=== PATIENT | male | born 1965 | race Caucasian/White ===

== ENCOUNTER 2016-11-15 12:03 | Inpatient (IN) | payer MEDICAID, OTHER ==
[2016-11-15] VITALS (292 sets, daily range): BP systolic 106–153; BP diastolic 72–96; PULSE 93–127; TEMP 97–97.7; O2SAT 89–100
[~2016-11-15] VITALS: Ht 180.3 cm; Wt 130.0 kg
[~2016-11-15 12:03] MED LIST: ALDACTONE50 MG PO; ALEVE 220MG220 MG PO; ASPIRIN 81M81 MG/TA2 PO; ASPIRIN E.C. 8181 MG PO; BACTRIM DS 8001 TAB PO; BENADRYL25 M2 PO; CIPRO 500MG TA500 MG PO; DESYREL 50MG50 MG PO; FLAGYL500 MG PO; FLEXERIL10 MG PO; GLUCOPHAGE500 MG/TAB PO; IRON325 MG PO; LASIX 20MG TABL20 MG PO; LASIX 40MG TABL40 MG PO; LOPRESSOR 225 MG/TAB PO; MEDROL 4MG DOSPA4 MG PO; MULTI VITAMINS1 TAB PO; NO HOME MEDICATIONS; NORCO 325 MG-51 TAB PO; PLAVIX 75MG TAB75 MG PO; PREDNISONE20 MG PO; PRILOSEC10 MG PO; PRINZIDE 12.5 M1 TAB PO; THIAMINE 1100 MG/TAB PO; ULTRAM ER100 MG PO; VALIUM 5MG T5 MG/TAB PO; ZESTRIL 10MG10 MG PO; ZESTRIL 5MG5 MG PO; ZITHROMAX Z PA250 MG PO; ZOCOR 40MG40 MG PO; ZOFRAN 4MG T4 MG/TAB PO
[2016-11-15 12:30] LABS: INR 1.4 (0.8-3.0); PROTHROMBIN TIME 16.2 SECONDS (9.7-12.8)
[2016-11-15 12:33] LABS: PARTIAL THROMBOPLASTIN TIME 31.8 SECONDS (26.0-37.0)
[2016-11-15 12:34] LABS: BASO % 0.2 % (0.0-2.0); EOS % 0.1 % (0-4.0); GRAN # 5.6 (1.4-6.5); GRAN % 69.9 % (42.2-75.2); LYMPH # 1.8 (1.2-3.4); LYMPH % 22.3 % (20.0-51.0); MEAN CELL VOLUME 77 fl (80.0-100.0); MEAN CORPUSCULAR HGB CONC 34 g/dl (33.0-37.0); MONO # 0.6 (0.1-0.6); MONO % 7.1 % (1.7-9.3); PLATELET COUNT 121 K/mm3 (130-400); RED BLOOD COUNT 4.46 M/mm3 (4.20-5.60); REDCELL DISTRIBUTION WIDTH-CV 20.7 % (11.5-14.5)
[2016-11-15 12:35] LABS: ADJUSTED CALCIUM 10.9 mg/dL (8.4-10.2); ALBUMIN 3.1 gm/dL (3.5-5.0); BILIRUBIN,TOTAL 8.7 mg/dL (0.0-1.0); CALCIUM 10.2 mg/dL (8.4-10.2); CREATININE, serum 0.79 mg/dL (0.66-1.25); HEMATOCRIT 34.4 % (42.0-52.0); HEMOGLOBIN 11.7 g/dl (13.5-18.0); MAGNESIUM 1.3 mg/dL (1.6-2.3); MEAN CORPUSCULAR HEMOGLOBIN 26 pg (27.0-31.0); TOTAL PROTEIN 7.6 gm/dL (6.4-8.2)
[2016-11-15 12:37] LABS: POTASSIUM 4.4 mmol/L (3.4-5.0)
[2016-11-15 12:54] LABS: TROPONIN-I 0.086 ng/mL (0.000-0.034)
[2016-11-15] MEDS ORDERED: VALIUM 5MG T5 MG/TAB PO (15:49)
[2016-11-15] MEDS ORDERED: LASIX 40MG TABL40 MG PO (15:50)
[2016-11-15] MEDS ORDERED: ALDACTONE 25MG25 M1 PO (15:52)
[2016-11-15 17:19] LABS: PH 6 (5-8); SQUAMOUS EPITHELIAL 0-2 /hpf; URINE APPEARANCE Clear; URINE BACTERIA None Seen /hpf; URINE BILIRUBIN Positive (NEGATIVE); URINE BLOOD Negative (NEGATIVE); URINE COLOR Amber; URINE GLUCOSE Negative (NEGATIVE); URINE KETONE Trace (NEGATIVE); URINE RBC 0-2 /hpf; URINE WBC 0-2 /hpf
[2016-11-15 17:40] LABS: TOTAL IRON BINDING CAPACITY 359 ug/dL (261-462)
[2016-11-15 18:09] LABS: FERRITIN 139 ng/mL (18-464)
[2016-11-16] VITALS (639 sets, daily range): BP systolic 103–138; BP diastolic 54–83; PULSE 77–97; TEMP 97.4–98.7; O2SAT 83–100
[2016-11-16 06:07] LABS: INR 1.3 (0.8-3.0); PROTHROMBIN TIME 14.6 SECONDS (9.7-12.8)
[2016-11-16 06:09] LABS: BASO % 0.3 % (0.0-2.0); EOS # 0.1 (0.0-0.7); EOS % 0.5 % (0-4.0); GRAN # 6.5 (1.4-6.5); GRAN % 66.8 % (42.2-75.2); LYMPH # 2.4 (1.2-3.4); MEAN CELL VOLUME 77 fl (80.0-100.0); MEAN CORPUSCULAR HGB CONC 34 g/dl (33.0-37.0); MEAN PLATELET VOLUME 12.2 fl (7.4-10.4); MONO # 0.7 (0.1-0.6); MONO % 7.1 % (1.7-9.3); PLATELET COUNT 103 K/mm3 (130-400); RED BLOOD COUNT 3.45 M/mm3 (4.20-5.60); REDCELL DISTRIBUTION WIDTH-CV 20.9 % (11.5-14.5); WHITE BLOOD COUNT 9.7 K/mm3 (4.8-10.8)
[2016-11-16 06:17] LABS: HEMATOCRIT 26.6 % (42.0-52.0); HEMOGLOBIN 9.1 g/dl (13.5-18.0); MEAN CORPUSCULAR HEMOGLOBIN 26 pg (27.0-31.0)
[2016-11-16 06:24] LABS: ADJUSTED CALCIUM 9.3 mg/dL (8.4-10.2); ALBUMIN 2.5 gm/dL (3.5-5.0); BILIRUBIN,TOTAL 9.6 mg/dL (0.0-1.0); CALCIUM 8.1 mg/dL (8.4-10.2); CREATININE, serum 0.81 mg/dL (0.66-1.25); PHOSPHOROUS 2.9 mg/dL (2.5-4.5); POTASSIUM 4.1 mmol/L (3.4-5.0); TOTAL PROTEIN 6.4 gm/dL (6.4-8.2)
[2016-11-17] VITALS (12 sets, daily range): BP systolic 102–140; BP diastolic 58–81; PULSE 76–92; TEMP 97–98.7
[2016-11-17 09:05] LABS: BASO % 0.4 % (0.0-2.0); EOS # 0.2 (0.0-0.7); EOS % 1.9 % (0-4.0); GRAN # 5.5 (1.4-6.5); GRAN % 69.1 % (42.2-75.2); LYMPH # 1.6 (1.2-3.4); MEAN CELL VOLUME 80 fl (80.0-100.0); MEAN CORPUSCULAR HGB CONC 34 g/dl (33.0-37.0); MONO # 0.6 (0.1-0.6); MONO % 7.6 % (1.7-9.3); RED BLOOD COUNT 2.89 M/mm3 (4.20-5.60); REDCELL DISTRIBUTION WIDTH-CV 21.2 % (11.5-14.5); WHITE BLOOD COUNT 7.9 K/mm3 (4.8-10.8)
[2016-11-17 09:09] LABS: HEMATOCRIT 23.1 % (42.0-52.0); HEMOGLOBIN 7.8 g/dl (13.5-18.0); MEAN CORPUSCULAR HEMOGLOBIN 27 pg (27.0-31.0); PLATELET COUNT 69 K/mm3 (130-400)
[2016-11-17 09:21] LABS: ADJUSTED CALCIUM 9.2 mg/dL (8.4-10.2); ALBUMIN 2.5 gm/dL (3.5-5.0); BILIRUBIN,TOTAL 12.3 mg/dL (0.0-1.0); CREATININE, serum 0.87 mg/dL (0.66-1.25); POTASSIUM 3.8 mmol/L (3.4-5.0); TOTAL PROTEIN 6.3 gm/dL (6.4-8.2)
[2016-11-18 00:31] VITALS: BP 132/75; PULSE 82; TEMP 98.3
[2016-11-18 02:27] VITALS: BP 139/79; PULSE 87; TEMP 98.8
[2016-11-18 04:08] VITALS: BP 136/72; PULSE 79; TEMP 98.3
[2016-11-18 06:12] VITALS: BP 127/73; PULSE 77; TEMP 98.2
[2016-11-18 07:45] VITALS: BP 128/66; PULSE 73; TEMP 98.4
[2016-11-18 07:52] LABS: MEAN CELL VOLUME 81 fl (80.0-100.0); MEAN CORPUSCULAR HGB CONC 34 g/dl (33.0-37.0); MEAN PLATELET VOLUME 12.1 fl (7.4-10.4); RED BLOOD COUNT 2.77 M/mm3 (4.20-5.60); REDCELL DISTRIBUTION WIDTH-CV 21.4 % (11.5-14.5); WHITE BLOOD COUNT 7.4 K/mm3 (4.8-10.8)
[2016-11-18 08:09] LABS: ADJUSTED CALCIUM 9.1 mg/dL (8.4-10.2); ALBUMIN 2.5 gm/dL (3.5-5.0); BILIRUBIN,TOTAL 10.6 mg/dL (0.0-1.0); CALCIUM 7.9 mg/dL (8.4-10.2); CREATININE, serum 0.84 mg/dL (0.66-1.25); POTASSIUM 3.6 mmol/L (3.4-5.0); TOTAL PROTEIN 6.4 gm/dL (6.4-8.2)
[2016-11-18 08:13] LABS: HEMATOCRIT 22.4 % (42.0-52.0); HEMOGLOBIN 7.6 g/dl (13.5-18.0); MEAN CORPUSCULAR HEMOGLOBIN 27 pg (27.0-31.0); PLATELET COUNT 69 K/mm3 (130-400)
[2016-11-18] MEDS ORDERED: CARAFATE 1GM1 G PO (08:53)
[2016-11-18] MEDS ORDERED: PRILOSEC 20MG20 MG PO (08:53)
[2016-11-18 09:12] VITALS: BP 117/56; PULSE 73; TEMP 98.6
[2016-11-18] MEDS ORDERED: ZESTRIL 10MG10 MG PO (09:47)
[2016-11-18 09:53] LABS: BAND 3 % (0-10); BASOPHIL 1 % (0-2); EOSINOPHIL 1 % (0-4); NEUTROPHILS 67 % (42.0-75.2); TOTAL CELLS COUNTED 100
[2016-11-18 09:56] LABS: ANISOCYTOSIS 1+; HYPOCHROMIA 1+; TARGET CELLS 2+
[2016-11-18 09:58] LABS: ADD PATHOLOGY DIFF REVIEW YES
[2016-11-18] MEDS ORDERED: TENORMIN 2525 MG/TAB PO (11:26)
[2016-11-19 08:45] LABS: PATHOLOGY DIFF REVIEW OK
[2016-11-21 19:19] LABS: ALPHA 1 ANTITRYPSIN TOTAL 153 mg/dL (())
== END 2016-11-18 10:55 | disposition home or self-care (01) | DRG 378 ==
LOC: COL.ER 12:03 → SURG 14:16 → ICU 14:16 → SURG 11-16 12:20 → ICU 11-16 12:20 → SURG 11-18 10:55
PROVIDERS: Emergency Medicine; Internal Medicine; Internal Medicine Gastroenterology
PROC: 0DJ08ZZ Inspection of Upper Intestinal Tract, Via Natural or Artificial Opening Endoscopic (ICD-10-PCS; principal; 2016-11-15 17:00)
DX: K92.0 Hematemesis (principal); D62 Acute posthemorrhagic anemia; F10.239 Alcohol dependence with withdrawal, unspecified; E44.0 Moderate protein-calorie malnutrition; I10 Essential (primary) hypertension; E78.5 Hyperlipidemia, unspecified; E11.9 Type 2 diabetes mellitus without complications; F10.229 Alcohol dependence with intoxication, unspecified; Y90.3 Blood alcohol level of 60-79 mg/100 ml; K29.70 Gastritis, unspecified, without bleeding; K70.10 Alcoholic hepatitis without ascites; Z95.5 Presence of coronary angioplasty implant and graft; Z68.39 Body mass index [BMI] 39.0-39.9, adult
CPT/HCPCS: 99223-AI; 99232-AI; 99239; C9113; J2250; J2270; J2405; J2704; J3360; J3411; J3430; J3475; J7030; Q9967

== ENCOUNTER → 2016-11-24 | Outpatient (CLI) | payer MEDICAID ==
[~2016-11-24] MED LIST changes: +ALDACTONE 25MG25 M1 PO; +CARAFATE 1GM1 G PO; +K-DUR20 MEQ PO; +PRILOSEC 20MG20 MG PO; +PRINIVIL5 MG PO; +TENORMIN 2525 MG/TAB PO; +ULTRAM 50MG TAB50 MG PO
[2016-11-24 15:48] LABS: BASO # 0.1 (0.0-0.2); BASO % 0.8 % (0.0-2.0); EOS # 0.1 (0.0-0.7); EOS % 1.7 % (0-4.0); GRAN # 5.2 (1.4-6.5); GRAN % 66.5 % (42.2-75.2); LYMPH # 1.3 (1.2-3.4); MEAN CELL VOLUME 89 fl (80.0-100.0); MEAN CORPUSCULAR HGB CONC 31 g/dl (33.0-37.0); MEAN PLATELET VOLUME 11.8 fl (7.4-10.4); MONO % 12.3 % (1.7-9.3); PLATELET COUNT 222 K/mm3 (130-400); RED BLOOD COUNT 2.92 M/mm3 (4.20-5.60); REDCELL DISTRIBUTION WIDTH-CV 22.2 % (11.5-14.5); WHITE BLOOD COUNT 7.8 K/mm3 (4.8-10.8)
[2016-11-24 15:49] LABS: HEMATOCRIT 25.9 % (42.0-52.0); HEMOGLOBIN 8.1 g/dl (13.5-18.0); MEAN CORPUSCULAR HEMOGLOBIN 28 pg (27.0-31.0)
[2016-11-24 15:59] LABS: ADJUSTED CALCIUM 8.8 mg/dL (8.4-10.2); ALBUMIN 3.4 gm/dL (3.5-5.0); BILIRUBIN,TOTAL 3.4 mg/dL (0.0-1.0); CALCIUM 8.3 mg/dL (8.4-10.2); CREATININE, serum 0.88 mg/dL (0.66-1.25); POTASSIUM 3.7 mmol/L (3.4-5.0); TOTAL PROTEIN 7.6 gm/dL (6.4-8.2)
== END ==
LOC: ZCOL.LAB 15:25
PROVIDERS: Registered Nurse
DX: I10 Essential (primary) hypertension (principal); Z87.19 Personal history of other diseases of the digestive system

== ENCOUNTER → 2017-01-31 | Outpatient (CLI) | payer MEDICAID ==
[2017-01-31 14:35] LABS: BASO # 0.1 (0.0-0.2); BASO % 0.6 % (0.0-2.0); EOS # 0.2 (0.0-0.7); EOS % 1.7 % (0-4.0); GRAN # 7.3 (1.4-6.5); GRAN % 68.2 % (42.2-75.2); LYMPH # 2.1 (1.2-3.4); LYMPH % 19.6 % (20.0-51.0); MEAN CELL VOLUME 74 fl (80.0-100.0); MEAN CORPUSCULAR HGB CONC 29 g/dl (33.0-37.0); MEAN PLATELET VOLUME 10.2 fl (7.4-10.4); MONO % 9.5 % (1.7-9.3); PLATELET COUNT 212 K/mm3 (130-400); RED BLOOD COUNT 4.45 M/mm3 (4.20-5.60); REDCELL DISTRIBUTION WIDTH-CV 18.6 % (11.5-14.5); WHITE BLOOD COUNT 10.6 K/mm3 (4.8-10.8)
[2017-01-31 14:48] LABS: HEMATOCRIT 32.9 % (42.0-52.0); HEMOGLOBIN 9.5 g/dl (13.5-18.0); MEAN CORPUSCULAR HEMOGLOBIN 21 pg (27.0-31.0)
[2017-01-31 14:49] LABS: INR 1.2 (0.8-3.0); PROTHROMBIN TIME 13.8 SECONDS (9.7-12.8)
[2017-01-31 15:01] LABS: ADJUSTED CALCIUM 9.9 mg/dL (8.4-10.2); ALBUMIN 3.8 gm/dL (3.5-5.0); BILIRUBIN,TOTAL 0.9 mg/dL (0.0-1.0); CALCIUM 9.7 mg/dL (8.4-10.2); CREATININE, serum 0.81 mg/dL (0.66-1.25); POTASSIUM 4.1 mmol/L (3.4-5.0)
== END ==
LOC: COL.LAB 14:01
PROVIDERS: Internal Medicine Gastroenterology
DX: K76.0 Fatty (change of) liver, not elsewhere classified (principal)

== ENCOUNTER 2017-05-05 02:02 | Emergency (ER) | payer MEDICAID ==
[~2017-05-05] VITALS: Ht 180.3 cm; Wt 138.6 kg
[~2017-05-05 02:02] MED LIST changes: -K-DUR20 MEQ PO; -PRINIVIL5 MG PO; -ULTRAM 50MG TAB50 MG PO
[2017-05-05 02:06] VITALS: TEMP 98
[2017-05-05 02:39] LABS: BASO # 0.1 (0.0-0.2); BASO % 0.6 % (0.0-2.0); EOS # 0.1 (0.0-0.7); EOS % 0.8 % (0-4.0); GRAN # 6.8 (1.4-6.5); GRAN % 68.7 % (42.2-75.2); HEMOGLOBIN 12.5 g/dl (13.5-18.0); LYMPH # 2.3 (1.2-3.4); MEAN CELL VOLUME 74 fl (80.0-100.0); MEAN CORPUSCULAR HEMOGLOBIN 26 pg (27.0-31.0); MEAN CORPUSCULAR HGB CONC 34 g/dl (33.0-37.0); MEAN PLATELET VOLUME 10.7 fl (7.4-10.4); MONO # 0.6 (0.1-0.6); MONO % 6.5 % (1.7-9.3); PLATELET COUNT 149 K/mm3 (130-400); RED BLOOD COUNT 4.89 M/mm3 (4.20-5.60); WHITE BLOOD COUNT 9.9 K/mm3 (4.8-10.8)
[2017-05-05 02:40] LABS: HEMATOCRIT 36.3 % (42.0-52.0)
[2017-05-05 02:48] LABS: ANION GAP 13 mmol/L (7-16); BLOOD UREA NITROGEN 7 mg/dL (9-20); CALCIUM 7.7 mg/dL (8.4-10.2); CARBON DIOXIDE 22 mmol/L (22-30); CHLORIDE 94 mmol/L (98-107); GLUCOSE 120 mg/dL (74-106); POTASSIUM 3.9 mmol/L (3.4-5.0); SODIUM 129 mmol/L (137-145)
[2017-05-05] MEDS ORDERED: PRINIVIL5 MG PO (02:53)
[2017-05-05] MEDS ORDERED: K-DUR20 MEQ PO (02:55)
[2017-05-05 02:59] LABS: B-TYPE NATRIURETIC PEPTIDE 38 pg/mL (0-125); TROPONIN-I < 0.012 ng/mL (0.000-0.034)
[2017-05-05] MEDS ORDERED: ULTRAM 50MG TAB50 MG PO (03:21)
[2017-05-05 03:34] LABS: MAGNESIUM 1.3 mg/dL (1.6-2.3); PHOSPHOROUS 3.6 mg/dL (2.5-4.5)
[2017-05-05 05:01] VITALS: BP 110/75; PULSE 102
== END 2017-05-05 05:01 | disposition home or self-care (01) ==
LOC: COL.ER 02:02
PROVIDERS: Emergency Medicine
DX: M79.1 Myalgia (principal); R07.9 Chest pain, unspecified; I25.10 Atherosclerotic heart disease of native coronary artery without angina pectoris; Z95.5 Presence of coronary angioplasty implant and graft; Z87.891 Personal history of nicotine dependence; E11.9 Type 2 diabetes mellitus without complications; F10.10 Alcohol abuse, uncomplicated; Z79.84 Long term (current) use of oral hypoglycemic drugs
CPT/HCPCS: J1885; Q9967

== ENCOUNTER 2017-10-01 06:37 | Inpatient (IN) | payer MEDICAID ==
[~2017-10-01] VITALS: Ht 180.3 cm; Wt 123.6 kg
[~2017-10-01 06:37] MED LIST changes: +K-DUR20 MEQ PO; +PRINIVIL5 MG PO; +ULTRAM 50MG TAB50 MG PO
[2017-10-01] MEDS ORDERED: ALDACTONE50 MG PO (07:00)
[2017-10-01] MEDS ORDERED: MAG-OX 400400 MG/TAB PO (07:00)
[2017-10-01] MEDS ORDERED: LASIX 40MG TABL40 MG PO (07:00)
[2017-10-01] MEDS ORDERED: IRON 27 MG PO (07:21)
[2017-10-01 07:29] LABS: BASO # 0.1 (0.0-0.2); BASO % 0.8 % (0.0-2.0); EOS # 0.1 (0.0-0.7); EOS % 0.5 % (0-4.0); GRAN # 10.2 (1.4-6.5); GRAN % 77.4 % (42.2-75.2); LYMPH # 1.7 (1.2-3.4); LYMPH % 13.2 % (20.0-51.0); MEAN CELL VOLUME 83 fl (80.0-100.0); MEAN CORPUSCULAR HGB CONC 31 g/dl (33.0-37.0); MEAN PLATELET VOLUME 11.2 fl (7.4-10.4); MONO % 7.3 % (1.7-9.3); PLATELET COUNT 233 K/mm3 (130-400); REDCELL DISTRIBUTION WIDTH-CV 16.3 % (11.5-14.5)
[2017-10-01 07:33] LABS: INR 1.3 (0.8-3.0); PROTHROMBIN TIME 14.9 SECONDS (9.7-12.8)
[2017-10-01 07:39] LABS: ALBUMIN 3.9 gm/dL (3.5-5.0); BILIRUBIN,TOTAL 1.2 mg/dL (0.0-1.0); CREATININE, serum 0.51 mg/dL (0.66-1.25); POTASSIUM 4.7 mmol/L (3.4-5.0); TOTAL PROTEIN 7.8 gm/dL (6.4-8.2)
[2017-10-01 07:50] LABS: HEMATOCRIT 35.5 % (42.0-52.0); HEMOGLOBIN 10.9 g/dl (13.5-18.0); MEAN CORPUSCULAR HEMOGLOBIN 25 pg (27.0-31.0)
[2017-10-01 07:59] LABS: LIPASE 87 U/L (23-300)
[2017-10-01 08:14] LABS: TROPONIN-I < 0.012 ng/mL (0.000-0.034)
[2017-10-01] MEDS ORDERED: TYLENOL 325MG325 MG PO (11:23)
[2017-10-01 11:32] VITALS: BP 110/57; PULSE 78; TEMP 98.8
[2017-10-01 15:16] VITALS: BP 112/61; PULSE 89; TEMP 98.4
[2017-10-01 18:42] LABS: HEMATOCRIT 29.2 % (42.0-52.0); HEMOGLOBIN 9.2 g/dl (13.5-18.0)
[2017-10-01 19:37] VITALS: BP 111/44; PULSE 93; TEMP 99
[2017-10-02 00:30] VITALS: BP 95/52; PULSE 93; TEMP 98.5
[2017-10-02 02:00] LABS: HEMOGLOBIN 8.8 g/dl (13.5-18.0)
[2017-10-02 04:42] VITALS: BP 114/66; PULSE 84; TEMP 97.8
[2017-10-02 05:57] LABS: BASO # 0.1 (0.0-0.2); BASO % 0.7 % (0.0-2.0); EOS # 0.2 (0.0-0.7); EOS % 1.7 % (0-4.0); GRAN % 67.7 % (42.2-75.2); LYMPH # 2.2 (1.2-3.4); LYMPH % 21.5 % (20.0-51.0); MEAN CELL VOLUME 84 fl (80.0-100.0); MEAN CORPUSCULAR HGB CONC 30 g/dl (33.0-37.0); MEAN PLATELET VOLUME 10.9 fl (7.4-10.4); MONO # 0.8 (0.1-0.6); MONO % 7.5 % (1.7-9.3); PLATELET COUNT 180 K/mm3 (130-400); RED BLOOD COUNT 3.58 M/mm3 (4.20-5.60); REDCELL DISTRIBUTION WIDTH-CV 17.1 % (11.5-14.5)
[2017-10-02 06:02] LABS: HEMATOCRIT 30.2 % (42.0-52.0); HEMOGLOBIN 9.1 g/dl (13.5-18.0); MEAN CORPUSCULAR HEMOGLOBIN 25 pg (27.0-31.0)
[2017-10-02 06:07] LABS: CALCIUM 8.5 mg/dL (8.4-10.2); CREATININE, serum 0.55 mg/dL (0.66-1.25)
[2017-10-02 08:45] VITALS: BP 121/62; PULSE 82; TEMP 97.9
[2017-10-02 12:47] VITALS: BP 123/70; PULSE 87; TEMP 98.5
[2017-10-02 15:53] VITALS: BP 121/61; PULSE 87; TEMP 98
[2017-10-02 20:17] VITALS: BP 128/56; PULSE 93; TEMP 98.6
[2017-10-03 03:35] VITALS: BP 123/71; PULSE 93; TEMP 98.4
[2017-10-03 08:44] LABS: BASO % 0.6 % (0.0-2.0); EOS # 0.1 (0.0-0.7); GRAN # 4.9 (1.4-6.5); GRAN % 68.4 % (42.2-75.2); LYMPH # 1.4 (1.2-3.4); MEAN CELL VOLUME 85 fl (80.0-100.0); MEAN CORPUSCULAR HGB CONC 31 g/dl (33.0-37.0); MEAN PLATELET VOLUME 10.1 fl (7.4-10.4); MONO # 0.7 (0.1-0.6); MONO % 9.6 % (1.7-9.3); PLATELET COUNT 142 K/mm3 (130-400); RED BLOOD COUNT 3.15 M/mm3 (4.20-5.60); REDCELL DISTRIBUTION WIDTH-CV 17.3 % (11.5-14.5)
[2017-10-03 08:49] VITALS: BP 91/38; PULSE 83; TEMP 98.4
[2017-10-03 08:52] LABS: CALCIUM 8.2 mg/dL (8.4-10.2); CREATININE, serum 0.53 mg/dL (0.66-1.25); POTASSIUM 3.2 mmol/L (3.4-5.0)
[2017-10-03 08:55] LABS: HEMATOCRIT 26.9 % (42.0-52.0); HEMOGLOBIN 8.2 g/dl (13.5-18.0); MEAN CORPUSCULAR HEMOGLOBIN 26 pg (27.0-31.0)
[2017-10-03 12:34] VITALS: BP 123/73; PULSE 82; TEMP 98
== END 2017-10-03 16:10 | disposition home or self-care (01) | DRG 378 ==
LOC: COL.ER 06:37 → MEDICAL 08:49 → COL.ER 08:49 → MEDICAL 10-03 16:10
PROVIDERS: Emergency Medicine; Internal Medicine; Internal Medicine Gastroenterology; Physician Assistant
PROC: 0DJ08ZZ Inspection of Upper Intestinal Tract, Via Natural or Artificial Opening Endoscopic (ICD-10-PCS; principal; 2017-10-02 08:00)
PROC: 0DBK8ZX Excision of Ascending Colon, Via Natural or Artificial Opening Endoscopic, Diagnostic (ICD-10-PCS; 2017-10-03)
PROC: 0DBL8ZX Excision of Transverse Colon, Via Natural or Artificial Opening Endoscopic, Diagnostic (ICD-10-PCS; 2017-10-03)
PROC: 0DBN8ZX Excision of Sigmoid Colon, Via Natural or Artificial Opening Endoscopic, Diagnostic (ICD-10-PCS; 2017-10-03)
PROC: 0DBP8ZX Excision of Rectum, Via Natural or Artificial Opening Endoscopic, Diagnostic (ICD-10-PCS; 2017-10-03)
DX: K92.1 Melena (principal); D62 Acute posthemorrhagic anemia; D12.2 Benign neoplasm of ascending colon; D12.3 Benign neoplasm of transverse colon; D12.5 Benign neoplasm of sigmoid colon; D12.8 Benign neoplasm of rectum; K64.0 First degree hemorrhoids; K22.70 Barrett's esophagus without dysplasia; K29.60 Other gastritis without bleeding; K29.30 Chronic superficial gastritis without bleeding; I25.10 Atherosclerotic heart disease of native coronary artery without angina pectoris; F10.10 Alcohol abuse, uncomplicated; K70.30 Alcoholic cirrhosis of liver without ascites; E11.65 Type 2 diabetes mellitus with hyperglycemia; E87.6 Hypokalemia; Z95.5 Presence of coronary angioplasty implant and graft; I10 Essential (primary) hypertension; Z87.891 Personal history of nicotine dependence; E66.01 Morbid (severe) obesity due to excess calories; Z68.38 Body mass index [BMI] 38.0-38.9, adult; G89.29 Other chronic pain; M54.9 Dorsalgia, unspecified
CPT/HCPCS: 99223-AI; 99232-AI; 99238; C9113; J1815; J2405; J2704; J3411; J7030; Q9967

== ENCOUNTER 2018-09-09 17:12 | Emergency (ER) | payer MEDICARE, MEDICAID ==
[~2018-09-09] VITALS: Ht 180.3 cm; Wt 139.5 kg
[~2018-09-09 17:12] MED LIST changes: +IRON 27 MG PO; +JANUMET 1000 MG1 TA1 PO; +MAG-OX 400400 MG/TAB PO; +NAPROSYN 2250 MG/TAB; +TYLENOL 325MG325 MG PO
[2018-09-09 17:16] VITALS: BP 144/67; TEMP 98.1
[2018-09-09] MEDS ORDERED: PRIL40 PO (17:52)
[2018-09-09] MEDS ORDERED: LIPITOR 10MG10 MG (17:52)
[2018-09-09] MEDS ORDERED: NEURONTIN300 MG/CAP PO (17:54)
[2018-09-09] MEDS ORDERED: NORCO 325 MG-7.1 TAB PO (18:09)
[2018-09-09 18:21] VITALS: PULSE 84
== END 2018-09-09 18:21 | disposition home or self-care (01) ==
LOC: COL.ER 17:12
DX: S20.211A Contusion of right front wall of thorax, initial encounter (principal); E11.9 Type 2 diabetes mellitus without complications; I25.10 Atherosclerotic heart disease of native coronary artery without angina pectoris; I50.9 Heart failure, unspecified; I11.0 Hypertensive heart disease with heart failure; Z79.84 Long term (current) use of oral hypoglycemic drugs; Z87.891 Personal history of nicotine dependence; V43.52XA Car driver injured in collision with other type car in traffic accident, initial encounter
CPT/HCPCS: A9284

== ENCOUNTER → 2019-06-17 | Outpatient (CLI) | payer MEDICARE ==
[~2019-06-17] MED LIST changes: +LIPITOR 10MG10 MG; +NEURONTIN300 MG/CAP PO; +NORCO 325 MG-7.1 TAB PO; +PRIL40 PO
[2019-06-17 14:18] LABS: INR 1.1 (0.8-3.0); PROTHROMBIN TIME 12.3 SECONDS (9.7-12.8)
[2019-06-17 14:20] LABS: IRON,SERUM 31 ug/dL (35-150)
[2019-06-17 14:29] LABS: TOTAL IRON BINDING CAPACITY 560 ug/dL (261-462)
[2019-06-17 14:56] LABS: FERRITIN 7 ng/mL (18-464)
[2019-06-17 22:40] LABS: HEPATITIS B SURFACE ANTIBODY <2.0 (()); HEPATITIS B SURFACE ANTIGEN Negative (Negative); HEPATITIS C VIRUS ANTIBODY Negative (Negative)
[2019-06-19 01:09] LABS: CERULOPLASMIN 27 mg/dL (18-36)
== END ==
LOC: COL.LAB 13:17
DX: I50.9 Heart failure, unspecified (principal); K74.60 Unspecified cirrhosis of liver; D64.9 Anemia, unspecified; I51.9 Heart disease, unspecified; K76.0 Fatty (change of) liver, not elsewhere classified

== ENCOUNTER → 2019-06-30 | Outpatient (CLI) | payer MEDICARE | LOC: COL.RAD 08:36 | DX: I51.9 Heart disease, unspecified (principal); K76.0 Fatty (change of) liver, not elsewhere classified; K74.60 Unspecified cirrhosis of liver; K80.20 Calculus of gallbladder without cholecystitis without obstruction ==

== ENCOUNTER → 2019-07-28 | Outpatient (CLI) | payer MEDICARE ==
--- NOTE | 2019-07-23 09:42 | NUR ---
called and message left on machine with instructions.
[~2019-07-28] VITALS: Ht 180.3 cm; Wt 134.5 kg
[2019-07-28] VITALS (15 sets, daily range): BP systolic 107–145; BP diastolic 55–97; PULSE 72–88
[~2019-07-28] MED LIST changes: +GLUCOPHAGE1000 MG PO; -LIPITOR 10MG10 MG; +LIPITOR 10MG10 MG PO; +TRULICITY1.5 MG/0.5 SQ
[2019-07-28 09:05] LABS: INR 1.1 (0.8-3.0); PROTHROMBIN TIME 12.6 SECONDS (9.7-12.8)
--- NOTE | 2019-07-28 09:20 | NUR ---
PT TAKEN TO CT AND PLACED ON THE TABLE. MONITORING EQUIPMENT PLACED. IMAGES TAKEN AND SENT
--- NOTE | 2019-07-28 09:35 | NUR ---
PROCEDURE COMPLETED BY DR MUNIZ. SPECIMENS IN FORMALIN. MONITORING EQUIPMENT REMOVED. PT ASSISTED TO WHEELCHAIR
--- NOTE | 2019-07-28 12:38 | NUR ---
pt was taken down to lobby and assisted into pov with his sister
== END ==
LOC: COL.RAD 08:39
PROVIDERS: Internal Medicine Gastroenterology
DX: K74.60 Unspecified cirrhosis of liver (principal)

== ENCOUNTER → 2019-09-17 | Outpatient (CLI) | payer MEDICARE | LOC: COL.RAD 15:38 | DX: R05 Cough (principal) ==

== ENCOUNTER → 2020-04-08 | Outpatient (CLI) | payer MEDICARE | LOC: COL.RAD 08:15 | DX: K70.10 Alcoholic hepatitis without ascites (principal); K82.8 Other specified diseases of gallbladder ==

== ENCOUNTER → 2020-05-19 | Outpatient (CLI) | payer MEDICARE | LOC: COL.RAD 11:40 | DX: K82.8 Other specified diseases of gallbladder (principal) | CPT/HCPCS: A9537; J2805 ==

== ENCOUNTER → 2020-06-08 | Outpatient (CLI) | payer MEDICARE ==
[2020-06-08 13:16] LABS: HEMATOCRIT 42.3 % (42.0-52.0); HEMOGLOBIN 13.6 g/dl (13.5-18.0); MEAN CELL VOLUME 89 fl (80.0-100.0); MEAN CORPUSCULAR HEMOGLOBIN 29 pg (27.0-31.0); MEAN CORPUSCULAR HGB CONC 32 g/dl (33.0-37.0); MEAN PLATELET VOLUME 10.7 fl (7.4-10.4); PLATELET COUNT 180 K/mm3 (130-400); RED BLOOD COUNT 4.77 M/mm3 (4.20-5.60); REDCELL DISTRIBUTION WIDTH-CV 14.6 % (11.5-14.5)
[2020-06-08 13:20] LABS: INR 1.1 (0.8-3.0); PROTHROMBIN TIME 12.6 SECONDS (9.7-12.8)
[2020-06-08 13:24] LABS: ALBUMIN 4.1 gm/dL (3.5-5.0); BILIRUBIN,TOTAL 0.9 mg/dL (0.0-1.0); CALCIUM 9.9 mg/dL (8.4-10.2); CREATININE, serum 0.6 (0.66-1.25); POTASSIUM 4.6 mmol/L (3.4-5.0)
== END ==
LOC: COL.LAB 12:25
PROVIDERS: Surgery
DX: Z01.818 Encounter for other preprocedural examination (principal); K81.1 Chronic cholecystitis

== ENCOUNTER 2020-06-22 12:28 | Day surgery (SDC) | payer MEDICARE ==
[~2020-06-22] VITALS: Ht 180.3 cm; Wt 63.8 kg
[2020-06-22] VITALS (8 sets, daily range): BP systolic 111–131; BP diastolic 60–77; PULSE 67–78; TEMP 97.7–98
--- NOTE | 2020-06-22 10:59 | NUR ---
Initial visit; Patient thanked Component Prep Operator for offering comfort and prayer for him prior to his surgical procedure.
[2020-06-22 13:20] LABS: CALCIUM 8.9 mg/dL (8.4-10.2); CREATININE, serum 0.67 (0.66-1.25); POTASSIUM 4.1 mmol/L (3.4-5.0)
[2020-06-22] MEDS ORDERED: TYLENOL 325MG325 MG PO (14:24)
[2020-06-22] MEDS ORDERED: PERCOCET 325 MG1 TA2 PO (14:25)
--- NOTE | 2020-06-22 15:27 | NUR ---
Patient returns to room 4 per cart from surgery arouses to verbal stimuli. On oxygen at 2L per nasal cannula. Bandaids on upper abdomen port sites dry. Gauze dressing over umbilicus dry and intact. IV fluids infusing and site is free of redness. Siderails up x2 and call light in reach. Allowed to rest.
--- NOTE | 2020-06-22 15:42 | NUR ---
Resting when not disturbed.
--- NOTE | 2020-06-22 15:57 | NUR ---
Taking sips of water and denies pain or nausea.
--- NOTE | 2020-06-22 16:12 | NUR ---
Drinking diet Sprite. More awake and denies nausea.
--- NOTE | 2020-06-22 16:27 | NUR ---
Continues sipping on diet Sprite. Denies need for pain meds or nausea.
--- NOTE | 2020-06-22 16:57 | NUR ---
Eating crackers. Dressings remain dry.
--- NOTE | 2020-06-22 17:10 | NUR ---
Assisted up to the bathroom and gait is steady. Able to void and returns to room. States that he is having incisional soreness. Medicated with Percocet one tab po. Sitting on edge of the cart.
--- NOTE | 2020-06-22 17:30 | NUR ---
Dismissal instructions given and voices understanding of these. Provided script for Percocet. Follow up appointment made and given card.
--- NOTE | 2020-06-22 17:49 | NUR ---
Patient dismissed to home driven by sister and taken to the vehicle by wheelchair and assisted into car with all dismissal instructions in hand.
== END 2020-06-22 17:49 | disposition home or self-care (01) ==
LOC: SDCO 12:28
PROVIDERS: Registered Nurse
DX: K80.18 Calculus of gallbladder with other cholecystitis without obstruction (principal); K42.9 Umbilical hernia without obstruction or gangrene; K70.30 Alcoholic cirrhosis of liver without ascites; I25.10 Atherosclerotic heart disease of native coronary artery without angina pectoris; I25.2 Old myocardial infarction; I10 Essential (primary) hypertension; E11.40 Type 2 diabetes mellitus with diabetic neuropathy, unspecified; D64.9 Anemia, unspecified; E78.00 Pure hypercholesterolemia, unspecified; K21.9 Gastro-esophageal reflux disease without esophagitis; G47.30 Sleep apnea, unspecified; J45.909 Unspecified asthma, uncomplicated; K22.70 Barrett's esophagus without dysplasia; I85.00 Esophageal varices without bleeding; G89.29 Other chronic pain; R51 Headache; R20.2 Paresthesia of skin; M19.90 Unspecified osteoarthritis, unspecified site; Z79.84 Long term (current) use of oral hypoglycemic drugs; Z20.828 Contact with and (suspected) exposure to other viral communicable diseases; Z95.5 Presence of coronary angioplasty implant and graft; Z79.82 Long term (current) use of aspirin; Z79.899 Other long term (current) drug therapy; Z87.891 Personal history of nicotine dependence
CPT/HCPCS: C1781; J0330; J0690; J1100; J1885; J2405; J2704; J2765; J3010; J7030

== ENCOUNTER 2020-06-27 06:03 | Emergency (ER) | payer MEDICARE ==
[~2020-06-27] VITALS: Ht 180.3 cm; Wt 136.4 kg
[~2020-06-27 06:03] MED LIST changes: +PERCOCET 325 MG1 TA2 PO
[2020-06-27 06:04] VITALS: TEMP 98.2
[2020-06-27 07:16] LABS: BASO % 0.4 % (0.0-2.0); EOS # 0.2 (0.0-0.7); EOS % 2.4 % (0-4.0); GRAN # 6.9 (1.4-6.5); GRAN % 75.7 % (42.2-75.2); HEMATOCRIT 39.3 % (42.0-52.0); HEMOGLOBIN 12.6 g/dl (13.5-18.0); LYMPH # 0.9 (1.2-3.4); LYMPH % 9.9 % (20.0-51.0); MEAN CELL VOLUME 89 fl (80.0-100.0); MEAN CORPUSCULAR HEMOGLOBIN 29 pg (27.0-31.0); MEAN CORPUSCULAR HGB CONC 32 g/dl (33.0-37.0); MEAN PLATELET VOLUME 11.3 fl (7.4-10.4); MONO % 10.7 % (1.7-9.3); PLATELET COUNT 171 K/mm3 (130-400); RED BLOOD COUNT 4.42 M/mm3 (4.20-5.60)
[2020-06-27 07:25] LABS: ALANINE AMINOTRANSFERASE 50 U/L (4-49); ALBUMIN 3.7 gm/dL (3.5-5.0); ALKALINE PHOSPHATASE 164 U/L (50-136); ANION GAP 5 mmol/L (7-16); AST,SGOT 56 U/L (15-37); BILIRUBIN,TOTAL 1.2 mg/dL (0.0-1.0); BLOOD UREA NITROGEN 6 mg/dL (9-20); CALCIUM 8.7 mg/dL (8.4-10.2); CARBON DIOXIDE 34 mmol/L (22-30); CHLORIDE 94 mmol/L (98-107); CREATININE, serum 0.51 (0.66-1.25); GLUCOSE 228 mg/dL (74-106); LIPASE 121 U/L (23-300); POTASSIUM 4.4 mmol/L (3.4-5.0); SODIUM 133 mmol/L (137-145); TOTAL PROTEIN 7.7 gm/dL (6.4-8.2)
[2020-06-27 07:55] LABS: TROPONIN-I < 0.012 ng/mL (0.000-0.035)
[2020-06-27 07:57] LABS: INR 1.1 (0.8-3.0); PROTHROMBIN TIME 12.4 SECONDS (9.7-12.8)
[2020-06-27 08:00] LABS: PARTIAL THROMBOPLASTIN TIME 32.1 SECONDS (26.0-37.0)
[2020-06-27 10:01] LABS: COLLECTION METHOD CLEAN CATCH
[2020-06-27 10:43] LABS: MUCOUS Present /lpf; PH 8 (5-8); URINE APPEARANCE Clear; URINE BACTERIA Rare /hpf; URINE BILIRUBIN Negative (NEGATIVE); URINE BLOOD Negative (NEGATIVE); URINE COLOR Yellow; URINE GLUCOSE 1+ (NEGATIVE); URINE KETONE Negative (NEGATIVE); URINE LEUKOCYTE ESTERASE Negative (NEGATIVE); URINE NITRATE Negative (NEGATIVE); URINE PROTEIN(semi-quant) 1+ (NEGATIVE)
[2020-06-27] MEDS ORDERED: PERCOCET 325 MG1 TA2 PO (11:58)
[2020-06-27 12:29] VITALS: BP 157/75; PULSE 79
== END 2020-06-27 12:29 | disposition home or self-care (01) ==
LOC: COL.ER 06:03
PROVIDERS: Emergency Medicine
DX: K59.00 Constipation, unspecified (principal); G89.18 Other acute postprocedural pain; I10 Essential (primary) hypertension; E11.9 Type 2 diabetes mellitus without complications; E78.5 Hyperlipidemia, unspecified; Z95.5 Presence of coronary angioplasty implant and graft; Z90.49 Acquired absence of other specified parts of digestive tract; Z79.84 Long term (current) use of oral hypoglycemic drugs; Z79.01 Long term (current) use of anticoagulants
CPT/HCPCS: C9113; J3010; Q9967

== ENCOUNTER → 2021-03-16 | Outpatient (CLI) | payer MEDICARE ==
[2021-03-16 11:22] LABS: HEMATOCRIT 42.4 % (42.0-52.0); HEMOGLOBIN 14.2 g/dl (13.5-18.0); MEAN CELL VOLUME 90 fl (80.0-100.0); MEAN CORPUSCULAR HEMOGLOBIN 30 pg (27.0-31.0); MEAN CORPUSCULAR HGB CONC 34 g/dl (33.0-37.0); MEAN PLATELET VOLUME 10.4 fl (7.4-10.4); PLATELET COUNT 195 K/mm3 (130-400); REDCELL DISTRIBUTION WIDTH-CV 13.8 % (11.5-14.5)
[2021-03-16 11:39] LABS: CALCIUM 9.3 mg/dL (8.4-10.2); CREATININE, serum 0.82 (0.66-1.25); POTASSIUM 4.6 mmol/L (3.4-5.0)
== END ==
LOC: COL.LAB 10:50
PROVIDERS: Internal Medicine Interventional Cardiology
DX: Z01.812 Encounter for preprocedural laboratory examination (principal); I73.9 Peripheral vascular disease, unspecified; R60.0 Localized edema

== ENCOUNTER → 2021-03-20 | Outpatient (CLI) | payer MEDICARE | LOC: ZCOL.LAB 12:42 | DX: Z01.812 Encounter for preprocedural laboratory examination (principal); I73.9 Peripheral vascular disease, unspecified; R60.0 Localized edema ==

== ENCOUNTER → 2021-03-28 | Outpatient (CLI) | payer MEDICARE ==
[2021-03-28 14:25] LABS: HEMATOCRIT 43.7 % (42.0-52.0); HEMOGLOBIN 14.4 g/dl (13.5-18.0); MEAN CELL VOLUME 90 fl (80.0-100.0); MEAN CORPUSCULAR HEMOGLOBIN 30 pg (27.0-31.0); MEAN CORPUSCULAR HGB CONC 33 g/dl (33.0-37.0); MEAN PLATELET VOLUME 10.8 fl (7.4-10.4); PLATELET COUNT 202 K/mm3 (130-400); RED BLOOD COUNT 4.84 M/mm3 (4.20-5.60); REDCELL DISTRIBUTION WIDTH-CV 13.6 % (11.5-14.5)
[2021-03-28 14:38] LABS: CALCIUM 10.1 mg/dL (8.4-10.2); CREATININE, serum 0.58 (0.66-1.25); POTASSIUM 4.6 mmol/L (3.4-5.0)
== END ==
LOC: COL.LAB 13:22
PROVIDERS: Internal Medicine Interventional Cardiology
DX: I73.9 Peripheral vascular disease, unspecified (principal); R60.0 Localized edema

== ENCOUNTER → 2021-06-14 | Outpatient (CLI) | payer MEDICARE | LOC: COL.RAD 13:10 | DX: K70.10 Alcoholic hepatitis without ascites (principal); Z90.49 Acquired absence of other specified parts of digestive tract ==

== ENCOUNTER → 2021-06-27 | Outpatient (CLI) | payer MEDICARE ==
[2021-06-27 16:45] LABS: BASO # 0.1 (0.0-0.2); BASO % 0.7 % (0.0-2.0); EOS # 0.2 (0.0-0.7); EOS % 1.9 % (0-4.0); GRAN # 8.2 (1.4-6.5); GRAN % 72.4 % (42.2-75.2); HEMATOCRIT 44.8 % (42.0-52.0); LYMPH # 1.9 (1.2-3.4); LYMPH % 16.9 % (20.0-51.0); MEAN CELL VOLUME 90 fl (80.0-100.0); MEAN CORPUSCULAR HEMOGLOBIN 30 pg (27.0-31.0); MEAN CORPUSCULAR HGB CONC 34 g/dl (33.0-37.0); MEAN PLATELET VOLUME 10.6 fl (7.4-10.4); MONO # 0.9 (0.1-0.6); MONO % 7.7 % (1.7-9.3); PLATELET COUNT 218 K/mm3 (130-400); RED BLOOD COUNT 4.96 M/mm3 (4.20-5.60); REDCELL DISTRIBUTION WIDTH-CV 13.6 % (11.5-14.5)
[2021-06-27 17:01] LABS: ALBUMIN 3.6 gm/dL (3.5-5.0); BILIRUBIN,TOTAL 1.2 mg/dL (0.2-1.2); CREATININE, serum 0.87 mg/dL (0.72-1.25); POTASSIUM 4.6 mmol/L (3.5-4.5); TOTAL PROTEIN 8.2 gm/dL (6.2-8.1)
== END ==
LOC: COL.LAB 16:13
PROVIDERS: Student in an Organized Health Care Education/Training Program
DX: K70.30 Alcoholic cirrhosis of liver without ascites (principal)

== ENCOUNTER 2021-09-20 14:26 | Outpatient (RCR) | payer MEDICARE | END 2021-09-29 | disposition home or self-care (01) | LOC: MKS.ESL.PT | DX: G62.9 Polyneuropathy, unspecified (principal); Z91.81 History of falling ==

== ENCOUNTER → 2021-12-15 | Outpatient (CLI) | payer MEDICARE ==
[2021-12-15 17:14] LABS: BASO # 0.1 K/mm3 (0.0-0.2); BASO % 0.7 % (0.0-2.0); EOS # 0.2 K/mm3 (0.0-0.7); EOS % 2.9 % (0.0-4.0); GRAN # 5.4 K/mm3 (1.4-6.5); GRAN % 71.4 % (42.2-75.2); HEMATOCRIT 41.5 % (42.0-52.0); LYMPH # 1.3 K/mm3 (1.2-3.4); LYMPH % 16.5 % (20.0-51.0); MEAN CELL VOLUME 92 fl (80.0-100.0); MEAN CORPUSCULAR HEMOGLOBIN 31 pg (27-31); MEAN CORPUSCULAR HGB CONC 34 g/dl (33.0-37.0); MEAN PLATELET VOLUME 10.3 fl (7.4-10.4); MONO # 0.6 K/mm3 (0.1-0.6); PLATELET COUNT 168 K/mm3 (130-400); REDCELL DISTRIBUTION WIDTH-CV 14.4 % (11.5-14.5)
[2021-12-15 17:16] LABS: INR 1.2 (0.8-3.0); PROTHROMBIN TIME 13.3 SECONDS (9.7-12.8)
[2021-12-15 17:26] LABS: ALBUMIN 3.2 gm/dL (3.5-5.0); BILIRUBIN,TOTAL 0.7 mg/dL (0.2-1.2); CALCIUM 9.3 mg/dL (8.4-10.2); CREATININE, serum 0.72 mg/dL (0.72-1.25); POTASSIUM 4.6 mmol/L (3.5-4.5); TOTAL PROTEIN 7.4 gm/dL (6.2-8.1)
== END ==
LOC: COL.LAB 16:34
PROVIDERS: Student in an Organized Health Care Education/Training Program
DX: K76.0 Fatty (change of) liver, not elsewhere classified (principal); M86.671 Other chronic osteomyelitis, right ankle and foot

== ENCOUNTER → 2021-12-20 | Outpatient (CLI) | payer MEDICARE | LOC: COL.RAD 13:15 | DX: K74.60 Unspecified cirrhosis of liver (principal); I25.10 Atherosclerotic heart disease of native coronary artery without angina pectoris; Z90.49 Acquired absence of other specified parts of digestive tract | CPT/HCPCS: Q9967 ==

== ENCOUNTER → 2022-01-03 | Outpatient (CLI) | payer MEDICARE, OTHER ==
[~2022-01-03] MED LIST changes: +ATARAX 25MG25 MG/TAB PO
[2022-01-03 17:51] LABS: HEMATOCRIT 41.3 % (42.0-52.0); HEMOGLOBIN 13.8 g/dl (13.5-18.0); MEAN CELL VOLUME 91 fl (80.0-100.0); MEAN CORPUSCULAR HEMOGLOBIN 31 pg (27-31); MEAN CORPUSCULAR HGB CONC 33 g/dl (33.0-37.0); MEAN PLATELET VOLUME 10.5 fl (7.4-10.4); PLATELET COUNT 155 K/mm3 (130-400); RED BLOOD COUNT 4.53 M/mm3 (4.20-5.60); REDCELL DISTRIBUTION WIDTH-CV 13.9 % (11.5-14.5)
[2022-01-03 18:07] LABS: ALANINE AMINOTRANSFERASE 33 U/L (0-55); ALBUMIN 3.3 gm/dL (3.5-5.0); ALKALINE PHOSPHATASE 99 U/L (40-150); ANION GAP 11 mmol/L (7-16); AST,SGOT 43 U/L (5-34); BILIRUBIN,TOTAL 0.9 mg/dL (0.2-1.2); BLOOD UREA NITROGEN 14 mg/dL (8-26); CALCIUM 8.5 mg/dL (8.4-10.2); CARBON DIOXIDE 27 mmol/L (22-29); CHLORIDE 99 mmol/L (98-107); CREATININE, serum 0.72 mg/dL (0.72-1.25); GLUCOSE 121 mg/dL (70-99); POTASSIUM 3.9 mmol/L (3.5-4.5); SODIUM 137 mmol/L (136-145); TOTAL PROTEIN 7.6 gm/dL (6.2-8.1)
[2022-01-03 18:13] LABS: TROPONIN-I < 0.010 ng/mL (0.00-0.033)
== END ==
LOC: COL.LAB 17:24
PROVIDERS: Internal Medicine Interventional Cardiology
DX: R07.89 Other chest pain (principal)

== ENCOUNTER → 2022-01-29 | Outpatient (CLI) | payer MEDICARE, OTHER ==
[~2022-01-29] MED LIST changes: -IRON 27 MG PO; +IRON TABLETS325 MG PO; -NEURONTIN300 MG/CAP PO; +NEURONTIN800 MG/TAB PO; +PHARMASSURE ZIN50 MG PO; +PROAIR HFA0.09 MG/AC IH; -TRULICITY1.5 MG/0.5 SQ; +TRULICITY3 MG/0.5 M SQ
[2022-01-29 12:48] LABS: THYROID STIMULATING HORMONE 1.75 uIU/mL (0.350-4.940)
[2022-01-30 12:52] LABS: LYME DISEASE ANTIBODIES Negative (Negative)
[2022-01-31 19:47] LABS: CADMIUM BLOOD 0.5 ng/mL (<5.0); LEAD,SERUM** <1.0 mcg/dL (<5.0); MERCURY,SERUM <1 ng/mL (<10)
[2022-01-31 23:04] LABS: A/G RATIO (IEP) 0.82 (()); ALBUMIN (IEP) 2.6 g/dL (3.4-4.7); ALPHA 1 GLOBULINS (IEP) 0.2 g/dL (0.1-0.3); ALPHA 2 GLOBULINS (IEP) 0.7 g/dL (0.6-1.0); BETA GLOBULINS (IEP) 1.1 g/dL (0.7-1.2); GAMMA GLOBULINS (IEP) 1.2 g/dL (0.6-1.6)
[2022-02-01 20:21] LABS: VITAMIN E 6.7 mg/L (())
[2022-02-02 11:34] LABS: VITAMIN B1 116 nmol/L (70-180)
== END ==
LOC: COL.LAB 10:55
PROVIDERS: Nurse Practitioner
DX: G31.84 Mild cognitive impairment of uncertain or unknown etiology (principal); R20.0 Anesthesia of skin; R20.2 Paresthesia of skin; R26.89 Other abnormalities of gait and mobility

== ENCOUNTER 2022-02-09 10:42 | Day surgery (SDC) | payer MEDICARE, OTHER ==
[2022-02-09] VITALS (10 sets, daily range): BP systolic 134–169; BP diastolic 76–95; PULSE 68–94; TEMP 98.1
[~2022-02-09] VITALS: Ht 180.3 cm; Wt 131.0 kg
[~2022-02-09 10:42] MED LIST changes: -PHARMASSURE ZIN50 MG PO; -PROAIR HFA0.09 MG/AC IH
[2022-02-09] MEDS ORDERED: PHARMASSURE ZIN50 MG PO (11:22)
[2022-02-09] MEDS ORDERED: PROAIR HFA0.09 MG/AC IH (11:23)
[2022-02-09 11:53] LABS: HEMATOCRIT 40.8 % (42.0-52.0); HEMOGLOBIN 13.7 g/dl (13.5-18.0); MEAN CELL VOLUME 92 fl (80.0-100.0); MEAN CORPUSCULAR HEMOGLOBIN 31 pg (27-31); MEAN CORPUSCULAR HGB CONC 34 g/dl (33.0-37.0); MEAN PLATELET VOLUME 10.7 fl (7.4-10.4); PLATELET COUNT 145 K/mm3 (130-400); RED BLOOD COUNT 4.46 M/mm3 (4.20-5.60); REDCELL DISTRIBUTION WIDTH-CV 13.2 % (11.5-14.5)
[2022-02-09 12:08] LABS: INR 1.2 (0.8-3.0); PROTHROMBIN TIME 13.7 SECONDS (9.7-12.8)
[2022-02-09 12:11] LABS: PARTIAL THROMBOPLASTIN TIME 31.4 SECONDS (26.0-37.0)
[2022-02-09 12:12] LABS: CALCIUM 8.7 mg/dL (8.4-10.2); CREATININE, serum 0.73 mg/dL (0.72-1.25)
--- NOTE | 2022-02-09 13:38 | NUR ---
PATIENT ALERT AND ORIENTED, NO REPORTS OF CHEST PAIN BUT DOES REPORT CHRONIC BACK PAIN. CONSENT VERIFIED. NO FAMILY HERE WITH PATIENT. SEE MERGE FOR PROCEDURE INFO VITALS, HEMODYNAMIC MONITORING AND MEDICATION ADMINISTRATION
--- NOTE | 2022-02-09 14:02 | NUR ---
Pt back from catheterization laboratory technician, TR band to rt wrist, cms intact distal. SR on monitor, vss. Pt awake and alert. lunch ordered. call light in reach.
[2022-02-09] MEDS ORDERED: PLAVIX 75MG TAB75 MG PO (14:24)
[2022-02-09] MEDS ORDERED: ASPIRIN E.C. 8181 MG PO (14:26)
--- NOTE | 2022-02-09 17:23 | NUR ---
TR band has been deflated with no problem. Site dressed with bandaid, folded 2x2 and coban, cms remains intact distal. I have reviewed dc/rx and fu instructions with pt who verbed understanding. Pt has been up and ambulatory with steady gait with his cane. he is dressed and sitting in chair waiting for ride home from sister which will be just after 1800 per pt.
[2022-02-15 15:27] LABS: VITAMIN B1 110 nmol/L (70-180)
== END 2022-02-12 13:34 | disposition home or self-care (01) ==
LOC: COL.CAR 10:42
PROVIDERS: Internal Medicine Interventional Cardiology
DX: I25.10 Atherosclerotic heart disease of native coronary artery without angina pectoris (principal); Z95.5 Presence of coronary angioplasty implant and graft
CPT/HCPCS: C1769; J1644; J2250; Q9967

== ENCOUNTER → 2022-02-15 10:50 | Outpatient (RCR) | payer MEDICARE ==
[~2022-02-15 10:50] MED LIST changes: +PHARMASSURE ZIN50 MG PO; +PROAIR HFA0.09 MG/AC IH
== END | disposition home or self-care (01) ==
LOC: MKS.ESL.PT 10-31 14:30
DX: G62.9 Polyneuropathy, unspecified (principal); Z91.81 History of falling

== ENCOUNTER 2022-03-23 17:44 | Emergency (ER) | payer MEDICARE ==
[~2022-03-23] VITALS: Ht 180.3 cm; Wt 129.1 kg
[2022-03-23 18:11] VITALS: TEMP 98
[2022-03-23 20:30] LABS: BASO # 0.1 K/mm3 (0.0-0.2); BASO % 0.9 % (0.0-2.0); EOS # 0.2 K/mm3 (0.0-0.7); EOS % 2.4 % (0.0-4.0); GRAN # 4.3 K/mm3 (1.4-6.5); GRAN % 64.6 % (42.2-75.2); HEMATOCRIT 46.9 % (42.0-52.0); HEMOGLOBIN 15.3 g/dl (13.5-18.0); LYMPH # 1.3 K/mm3 (1.2-3.4); LYMPH % 19.8 % (20.0-51.0); MEAN CELL VOLUME 93 fl (80.0-100.0); MEAN CORPUSCULAR HEMOGLOBIN 30 pg (27-31); MEAN CORPUSCULAR HGB CONC 33 g/dl (33.0-37.0); MEAN PLATELET VOLUME 10.5 fl (7.4-10.4); MONO # 0.8 K/mm3 (0.1-0.6); MONO % 11.9 % (1.7-9.3); PLATELET COUNT 149 K/mm3 (130-400); RED BLOOD COUNT 5.03 M/mm3 (4.20-5.60); REDCELL DISTRIBUTION WIDTH-CV 14.4 % (11.5-14.5)
[2022-03-23 20:48] LABS: ALANINE AMINOTRANSFERASE 28 U/L (0-55); ALBUMIN 3.5 gm/dL (3.5-5.0); ALKALINE PHOSPHATASE 93 U/L (40-150); ANION GAP 13 mmol/L (7-16); AST,SGOT 37 U/L (5-34); BILIRUBIN,TOTAL 1.3 mg/dL (0.2-1.2); BLOOD UREA NITROGEN 13 mg/dL (8-26); CALCIUM 9.5 mg/dL (8.4-10.2); CARBON DIOXIDE 24 mmol/L (22-29); CHLORIDE 102 mmol/L (98-107); CREATININE, serum 0.73 mg/dL (0.72-1.25); GLUCOSE 111 mg/dL (70-99); POTASSIUM 4.7 mmol/L (3.5-4.5); SODIUM 139 mmol/L (136-145); TOTAL PROTEIN 7.9 gm/dL (6.2-8.1)
[2022-03-23 20:54] LABS: TROPONIN-I < 0.010 ng/mL (0.00-0.033)
[2022-03-23 21:09] LABS: COLLECTION METHOD CLEAN CATCH
[2022-03-23 21:24] LABS: MUCOUS Present (NOT PRESENT); PH 6 (5-8); SQUAMOUS EPITHELIAL 0-2 /hpf (0-10); URINE APPEARANCE Hazy (CLEAR/HAZY); URINE BACTERIA None Seen /hpf (NONE SEEN); URINE BILIRUBIN Positive (NEGATIVE); URINE BLOOD Negative (NEGATIVE); URINE COLOR Amber (YELLOW); URINE GLUCOSE Negative (NEGATIVE); URINE KETONE Trace (NEGATIVE); URINE LEUKOCYTE ESTERASE Trace (NEGATIVE); URINE NITRATE Negative (NEGATIVE); URINE PROTEIN(semi-quant) 2+ (NEGATIVE); URINE RBC 0-2 /hpf (0-2); URINE UROBILINOGEN >=4.0 (NEGATIVE)
[2022-03-23 21:25] LABS: INR 1.1 (0.8-3.0); PROTHROMBIN TIME 13.1 SECONDS (9.7-12.8)
[2022-03-23 21:30] LABS: TRICYCLIC ANTIDEPRESS URINE NEGATIVE
[2022-03-23 23:25] VITALS: BP 139/92; PULSE 90
== END 2022-03-23 23:25 | disposition home or self-care (01) ==
LOC: COL.ER 17:44
PROVIDERS: Nurse Practitioner Family
DX: R42 Dizziness and giddiness (principal); R26.9 Unspecified abnormalities of gait and mobility; R82.81 Pyuria; R53.1 Weakness; Z74.09 Other reduced mobility; Z28.311 Partially vaccinated for COVID-19
CPT/HCPCS: J2405

== ENCOUNTER → 2022-06-12 | Outpatient (CLI) | payer MEDICARE, OTHER ==
[2022-06-12 15:43] LABS: INR 1.1 (0.8-3.0); PROTHROMBIN TIME 13.1 SECONDS (9.7-12.8)
== END ==
LOC: COL.LAB 14:50
PROVIDERS: Student in an Organized Health Care Education/Training Program
DX: K70.30 Alcoholic cirrhosis of liver without ascites (principal)

== ENCOUNTER → 2022-06-20 | Outpatient (CLI) | payer MEDICARE, OTHER | LOC: COL.RAD 10:08 | DX: K74.60 Unspecified cirrhosis of liver (principal); Z90.49 Acquired absence of other specified parts of digestive tract ==

== ENCOUNTER → 2022-08-07 | Outpatient (CLI) | payer MEDICARE | LOC: COL.RAD 12:28 | DX: M47.816 Spondylosis without myelopathy or radiculopathy, lumbar region (principal); M47.817 Spondylosis without myelopathy or radiculopathy, lumbosacral region; M51.26 Other intervertebral disc displacement, lumbar region; M51.27 Other intervertebral disc displacement, lumbosacral region; M48.061 Spinal stenosis, lumbar region without neurogenic claudication; M48.07 Spinal stenosis, lumbosacral region; R26.89 Other abnormalities of gait and mobility; R20.0 Anesthesia of skin; R20.2 Paresthesia of skin ==

== ENCOUNTER → 2022-10-17 | Outpatient (CLI) | payer MEDICARE | LOC: COL.RAD 14:12 | DX: R05.1 Acute cough (principal) ==

== ENCOUNTER → 2022-10-25 | Outpatient (CLI) | payer MEDICARE | LOC: COL.RAD 10:03 | DX: J40 Bronchitis, not specified as acute or chronic (principal); R06.2 Wheezing ==

== ENCOUNTER → 2022-11-30 | Outpatient (CLI) | payer MEDICARE ==
[2022-11-30 14:34] LABS: CALCIUM 8.3 mg/dL (8.4-10.2); CREATININE, serum 0.71 mg/dL (0.72-1.25); MAGNESIUM 1.4 mg/dL (1.6-2.6); POTASSIUM 4.3 mmol/L (3.5-4.5)
[2022-11-30 14:35] LABS: HEMATOCRIT 38.7 % (42.0-52.0); HEMOGLOBIN 13.3 g/dl (13.5-18.0); MEAN CELL VOLUME 92 fl (80.0-100.0); MEAN CORPUSCULAR HEMOGLOBIN 32 pg (27-31); MEAN CORPUSCULAR HGB CONC 34 g/dl (33.0-37.0); MEAN PLATELET VOLUME 10.1 fl (7.4-10.4); PLATELET COUNT 142 K/mm3 (130-400); RED BLOOD COUNT 4.22 M/mm3 (4.20-5.60); REDCELL DISTRIBUTION WIDTH-CV 14.6 % (11.5-14.5)
== END ==
LOC: COL.LAB 13:36
PROVIDERS: Nurse Practitioner
DX: I73.9 Peripheral vascular disease, unspecified (principal)

== ENCOUNTER → 2022-12-04 | Outpatient (CLI) | payer MEDICARE ==
[2022-12-04 16:25] LABS: INR 1.3 (0.8-3.0); PROTHROMBIN TIME 14.4 SECONDS (9.7-12.8)
[2022-12-04 16:44] LABS: ALBUMIN 3.4 gm/dL (3.5-5.0); BILIRUBIN,TOTAL 1.9 mg/dL (0.2-1.2); CREATININE, serum 0.87 mg/dL (0.72-1.25); POTASSIUM 3.9 mmol/L (3.5-4.5); TOTAL PROTEIN 8.1 gm/dL (6.2-8.1)
== END ==
LOC: COL.LAB 15:51
PROVIDERS: Registered Nurse
DX: U07.1 COVID-19 (principal); K70.10 Alcoholic hepatitis without ascites; R51.9 Headache, unspecified

== ENCOUNTER 2022-12-29 07:42 | Emergency (ER) | payer MEDICARE ==
[~2022-12-29] VITALS: Ht 180.3 cm; Wt 130.9 kg
[~2022-12-29 07:42] MED LIST changes: +TESSALON P100 MG/CAP PO
[2022-12-29 07:57] LABS: BASO # 0.1 K/mm3 (0.0-0.2); BASO % 0.9 % (0.0-2.0); EOS # 0.1 K/mm3 (0.0-0.7); EOS % 0.8 % (0.0-4.0); GRAN # 8.2 K/mm3 (1.4-6.5); GRAN % 75.7 % (42.2-75.2); HEMATOCRIT 38.2 % (42.0-52.0); HEMOGLOBIN 13.1 g/dl (13.5-18.0); LYMPH # 1.6 K/mm3 (1.2-3.4); LYMPH % 14.7 % (20.0-51.0); MEAN CELL VOLUME 95 fl (80.0-100.0); MEAN CORPUSCULAR HEMOGLOBIN 33 pg (27-31); MEAN CORPUSCULAR HGB CONC 34 g/dl (33.0-37.0); MEAN PLATELET VOLUME 10.6 fl (7.4-10.4); MONO # 0.8 K/mm3 (0.1-0.6); MONO % 7.3 % (1.7-9.3); PLATELET COUNT 178 K/mm3 (130-400); RED BLOOD COUNT 4.02 M/mm3 (4.20-5.60); REDCELL DISTRIBUTION WIDTH-CV 15.4 % (11.5-14.5)
[2022-12-29 08:17] LABS: ALANINE AMINOTRANSFERASE 56 U/L (0-55); ALBUMIN 2.7 gm/dL (3.5-5.0); ALKALINE PHOSPHATASE 185 U/L (40-150); ANION GAP 12 mmol/L (7-16); AST,SGOT 140 U/L (5-34); BILIRUBIN,TOTAL 1.6 mg/dL (0.2-1.2); BLOOD UREA NITROGEN 19 mg/dL (8-26); CALCIUM 8.5 mg/dL (8.4-10.2); CARBON DIOXIDE 26 mmol/L (22-29); CHLORIDE 95 mmol/L (98-107); CREATININE, serum 0.82 mg/dL (0.72-1.25); GLUCOSE 188 mg/dL (70-99); LIPASE 76 U/L (8-78); POTASSIUM 4.2 mmol/L (3.5-4.5); SODIUM 133 mmol/L (136-145); TOTAL PROTEIN 7.1 gm/dL (6.2-8.1)
[2022-12-29 08:23] LABS: TROPONIN-I < 0.010 ng/mL (0.00-0.033)
[2022-12-29 09:40] LABS: COLLECTION METHOD CLEAN CATCH
[2022-12-29 09:52] LABS: SQUAMOUS EPITHELIAL 0-2 /hpf (0-10); URINE BACTERIA None Seen /hpf (NONE SEEN); URINE RBC None Seen /hpf (0-2)
[2022-12-29 10:00] LABS: URINE APPEARANCE Clear (CLEAR/HAZY); URINE COLOR Yellow (YELLOW)
[2022-12-29 10:01] LABS: URINE BLOOD Negative (NEGATIVE); URINE GLUCOSE Negative (NEGATIVE); URINE KETONE 1+ (NEGATIVE); URINE NITRATE Negative (NEGATIVE); URINE PROTEIN(semi-quant) 1+ (NEGATIVE)
[2022-12-29 12:24] VITALS: BP 143/90; PULSE 98; TEMP 97.7
== END 2022-12-29 13:14 | disposition home or self-care (01) ==
LOC: COL.ER 07:42
PROVIDERS: Emergency Medicine
DX: R10.13 Epigastric pain (principal); D64.9 Anemia, unspecified; D72.829 Elevated white blood cell count, unspecified; R74.01 Elevation of levels of liver transaminase levels; E80.7 Disorder of bilirubin metabolism, unspecified; Z90.49 Acquired absence of other specified parts of digestive tract; Z86.16 Personal history of COVID-19
CPT/HCPCS: J2405; Q9967

== ENCOUNTER 2022-12-31 11:46 | Emergency (ER) | payer MEDICARE ==
[~2022-12-31] VITALS: Ht 180.3 cm; Wt 130.9 kg
[2022-12-31 12:00] VITALS: TEMP 98.3
[2022-12-31 15:43] LABS: ALBUMIN 2.7 gm/dL (3.5-5.0); BILIRUBIN,TOTAL 1.6 mg/dL (0.2-1.2); CALCIUM 8.5 mg/dL (8.4-10.2); CREATININE, serum 0.66 mg/dL (0.72-1.25); POTASSIUM 4.3 mmol/L (3.5-4.5); TOTAL PROTEIN 6.4 gm/dL (6.2-8.1)
[2022-12-31 16:03] LABS: BASO # 0.1 K/mm3 (0.0-0.2); BASO % 0.9 % (0.0-2.0); EOS # 0.2 K/mm3 (0.0-0.7); EOS % 1.8 % (0.0-4.0); GRAN # 6.8 K/mm3 (1.4-6.5); GRAN % 75.9 % (42.2-75.2); LYMPH # 1.3 K/mm3 (1.2-3.4); LYMPH % 14.5 % (20.0-51.0); MEAN CELL VOLUME 96 fl (80.0-100.0); MEAN CORPUSCULAR HGB CONC 34 g/dl (33.0-37.0); MEAN PLATELET VOLUME 11.1 fl (7.4-10.4); MONO # 0.6 K/mm3 (0.1-0.6); MONO % 6.3 % (1.7-9.3); PLATELET COUNT 125 K/mm3 (130-400); REDCELL DISTRIBUTION WIDTH-CV 15.4 % (11.5-14.5)
[2022-12-31 16:08] LABS: HEMATOCRIT 30.8 % (42.0-52.0); HEMOGLOBIN 10.6 g/dl (13.5-18.0); MEAN CORPUSCULAR HEMOGLOBIN 33 pg (27-31)
[2022-12-31] MEDS ORDERED: NORCO 325 MG-51 TAB PO (16:53)
[2022-12-31 17:09] VITALS: BP 146/83; PULSE 90
== END 2022-12-31 17:11 | disposition home or self-care (01) ==
LOC: COL.ER 11:46
PROVIDERS: Emergency Medicine
DX: S30.0XXA Contusion of lower back and pelvis, initial encounter (principal); R19.5 Other fecal abnormalities; W18.30XA Fall on same level, unspecified, initial encounter

== ENCOUNTER → 2023-01-03 | Outpatient (CLI) | payer MEDICARE ==
[2023-01-03 12:49] LABS: HEMATOCRIT 31.6 % (42.0-52.0); HEMOGLOBIN 10.8 g/dl (13.5-18.0); MEAN CELL VOLUME 97 fl (80.0-100.0); MEAN CORPUSCULAR HEMOGLOBIN 33 pg (27-31); MEAN CORPUSCULAR HGB CONC 34 g/dl (33.0-37.0); MEAN PLATELET VOLUME 10.2 fl (7.4-10.4); PLATELET COUNT 145 K/mm3 (130-400); RED BLOOD COUNT 3.27 M/mm3 (4.20-5.60); REDCELL DISTRIBUTION WIDTH-CV 16.4 % (11.5-14.5)
[2023-01-03 13:02] LABS: CALCIUM 8.3 mg/dL (8.4-10.2); CREATININE, serum 0.8 mg/dL (0.72-1.25); POTASSIUM 3.9 mmol/L (3.5-4.5)
== END ==
LOC: COL.LAB 12:02
PROVIDERS: Internal Medicine Interventional Cardiology
DX: I73.9 Peripheral vascular disease, unspecified (principal)

== ENCOUNTER 2023-01-25 10:50 | Day surgery (SDC) | payer MEDICARE ==
[~2023-01-25] VITALS: Ht 180.3 cm; Wt 132.0 kg
[2023-01-25] MEDS ORDERED: ASPIRIN E.C. 8181 MG PO (12:30)
[2023-01-25] MEDS ORDERED: K-TAB10 PO (12:31)
[2023-01-25] MEDS ORDERED: RANEXA 500MG T500 MG PO ×2 (12:31→12:32)
[2023-01-25] MEDS ORDERED: ATARAX 25MG25 MG/TAB PO (12:34)
[2023-01-25 12:36] VITALS: BP 127/76; PULSE 75; TEMP 97.4
[2023-01-25 13:00] VITALS: BP 116/69; PULSE 78; TEMP 97.4
[2023-01-25 13:15] VITALS: BP 120/68; PULSE 76
[2023-01-25 13:30] VITALS: BP 129/77; PULSE 72
--- NOTE | 2023-01-25 13:50 | NUR ---
1300 RETURNS TO ROOM 9 PER CART. AWAKE, ALERT. RESP UNLABORED. AMBULATES FROM CART TO RECLINER WITH 2 PERSON ASSIST AND CANE. VITAL SIGNS OBTAINED. DENIES NAUSEA, ABD PAIN OR DYSPHAGIA. 1315 DR. MERCHANT HERE TO VISIT WITH PATIENT. 1325 TOLERATES PO JUICE WITHOUT NAUSEA. SWALLOWS WITHOUT DIFFICULTY. DISCHARGE INSTRUCTIONS REVIEWED. PATIENT VERBALIZES UNDERSTANDING. COPY PROVIDED IN DISCHARGE FOLDER. 1335 DRESSES SELF. SITS IN RECLINER. AWAITING ARRIVAL OF SISTER.
== END 2023-01-25 13:50 | disposition home or self-care (01) ==
LOC: SDCO 10:50
DX: I85.00 Esophageal varices without bleeding (principal); K22.70 Barrett's esophagus without dysplasia; K70.30 Alcoholic cirrhosis of liver without ascites; Z87.891 Personal history of nicotine dependence
CPT/HCPCS: J2704; J7030

== ENCOUNTER 2023-11-04 13:09 | Inpatient (IN) | payer MEDICARE ==
[~2023-11-04] VITALS: Ht 180.3 cm; Wt 57.6 kg
[~2023-11-04 13:09] MED LIST changes: +CEPHALEXIN500 M1 PO; +CVS SPECTRAVIT1 EA15 PO; +DOXYCYCLINE 10100 MG PO; +FERRO-TIME325 MG PO; +FERROUSAL325 MG PO; +FLOMAX 0.40.4 MG/CAP PO; +FOLIC ACID 11 MG/TA1 PO; +K-DUR 10 MEQ T10 MEQ PO; +K-TAB10 PO; +LEADER NATUR1000 MCG PO; +LIPITOR 40MG TA40 MG PO; +NORVASC 5MG5 MG/TAB PO; +RANEXA 500MG T500 MG PO; +TOPROL XL 25MG25 MG PO; +VITAMIN D 50,1.25 MG PO; +VITAMIN D31000 IU PO; +VIVITROL380 MG IM
[2023-11-04] MEDS ORDERED: Mag/Al Hydrox/Simeth Susp 30 ML CUP PO ONE (15:30)
[2023-11-04] MEDS ORDERED: NS 500 ML IV ONE (15:30)
[2023-11-04 15:36] LABS: HEMATOCRIT 45.8 % (42.0-52.0); HEMOGLOBIN 15.6 g/dl (13.5-18.0); MEAN CELL VOLUME 79 fl (80.0-100.0); MEAN CORPUSCULAR HEMOGLOBIN 27 pg (27-31); MEAN CORPUSCULAR HGB CONC 34 g/dl (33.0-37.0); MEAN PLATELET VOLUME 11.2 fl (7.4-10.4); RED BLOOD COUNT 5.77 M/mm3 (4.20-5.60); REDCELL DISTRIBUTION WIDTH-CV 17.4 % (11.5-14.5)
[2023-11-04 15:49] LABS: INR 1.4 (0.8-3.0); PROTHROMBIN TIME 15.2 SECONDS (9.7-12.8)
[2023-11-04 16:07] LABS: BAND 6 % (0-10); LYMPHOCYTE 2 % (20.0-51.0); NEUTROPHILS 90 % (42.0-75.2)
[2023-11-04 16:08] LABS: ALANINE AMINOTRANSFERASE 78 U/L (0-55); ALBUMIN 3.2 gm/dL (3.5-5.0); ALCOHOL(ethanol),MEDICAL 41 mg/dL (0-10); ALKALINE PHOSPHATASE 146 U/L (40-150); ANION GAP 16 mmol/L (7-16); AST,SGOT 187 U/L (5-34); BILIRUBIN,TOTAL 3.1 mg/dL (0.2-1.2); BLOOD UREA NITROGEN 24 mg/dL (8-26); CALCIUM 8.8 mg/dL (8.4-10.2); CARBON DIOXIDE 19 mmol/L (22-29); CHLORIDE 92 mmol/L (98-107); GLUCOSE 148 mg/dL (70-99); LIPASE 256 U/L (8-78); POTASSIUM 3.6 mmol/L (3.5-4.5); SODIUM 127 mmol/L (136-145); TOTAL PROTEIN 7.9 gm/dL (6.2-8.1)
[2023-11-04 16:11] LABS: ANISOCYTOSIS 2+; MICROCYTOSIS 1+; PLATELET ESTIMATE NORMAL (NORMAL); POLYCHROMASIA 1+
[2023-11-04 16:14] LABS: STOMATOCYTE 1+
[2023-11-04 16:15] LABS: PLATELET COUNT 183 K/mm3 (130-400)
[2023-11-04 16:21] LABS: TROPONIN-I < 0.010 ng/mL (0.00-0.033)
[2023-11-04 16:25] LABS: COLLECTION METHOD CLEAN CATCH
[2023-11-04] MEDS ORDERED: Iohexol 300 - 100 ML VIAL IV ONE (16:34)
[2023-11-04 16:42] LABS: PH 5.5 (5.0-8.5); URINE APPEARANCE Hazy (CLEAR/HAZY); URINE BLOOD 1+ (NEGATIVE); URINE COLOR YELLOW (YELLOW); URINE GLUCOSE Negative (NEGATIVE); URINE KETONE Negative (NEGATIVE); URINE NITRATE Negative (NEGATIVE); URINE PROTEIN(semi-quant) Negative (BEGATIVE)
[2023-11-04 16:51] LABS: MUCOUS Present (NOT PRESENT); URINE BACTERIA Moderate /hpf (NONE SEEN)
[2023-11-04 17:01] LABS: TRICYCLIC ANTIDEPRESS URINE NEGATIVE (NEGATIVE)
[2023-11-04] MEDS ORDERED: Morphine 4 MG/ML VIAL IV ONE (18:30)
[2023-11-04] MEDS ORDERED: Ondansetron 4 MG/2 ML VIAL IV PRN (18:30)
[2023-11-04] MEDS ORDERED: LORazepam 1 MG TAB PO PRN (18:45)
[2023-11-04] MEDS ORDERED: oxyCODONE 5 MG TAB PO PRN ×2 (18:45)
[2023-11-04] MEDS ORDERED: Mag/Al Hydrox/Simeth Susp 30 ML CUP PO PRN ×2 (18:45)
[2023-11-04] MEDS ORDERED: NS 1,000 ML IV SCH (18:45)
[2023-11-04] MEDS ORDERED: Morphine 4 MG/ML VIAL IV PRN (18:45)
[2023-11-04] MEDS ORDERED: LORazepam 2 MG/ML 1 ML VIAL IV PRN (18:45)
[2023-11-04 19:45] VITALS: BP 156/90; BP 173/99; PULSE 105; PULSE 93; TEMP 97.6
--- NOTE | 2023-11-04 20:12 | NUR ---
pt arrived to room 342 from ED at 1950. pt ambulated from ED bed to room with x1 assist utilizing gait belt and walker. pt now resting in bed. pt with NS running to right AC without issue. pt received morphine in ED that he stated is helping with the pain but not completely relieving it. admission, med rec, and physical assessment complete. pt stated he has been running out of certain medications so he is unsure of last doses for most. pt a&o x4. call light in reach. all needs met at this time.
[2023-11-04] MEDS ORDERED: hydrOXYzine HCl 25 MG TAB PO PRN (20:15)
[2023-11-04] MEDS ORDERED: Albuterol 0.042% Neb Soln 1.25 MG/3 ML UD IH PRN (20:30)
[2023-11-04 21:00] VITALS: BP_SYST 156
[2023-11-04] MEDS ORDERED: Insulin Aspart (NovoLOG) SQ SCH (21:00)
[2023-11-04] MEDS ORDERED: Gabapentin 400 MG CAP PO SCH (21:00)
[2023-11-04] MEDS ORDERED: Atorvastatin 40 MG TAB PO SCH (21:00)
[2023-11-04] MEDS ORDERED: Ranolazine ER 500 MG TAB PO SCH (21:00)
[2023-11-04 23:47] VITALS: BP 140/81; PULSE 105; TEMP 97.5
[2023-11-05] VITALS (35 sets, daily range): BP systolic 72–157; BP diastolic 41–98; PULSE 103–114; TEMP 97.2–98; O2SAT 79–94
--- NOTE | 2023-11-05 02:20 | NUR ---
pt was reporting abd pain rated 9/10. pt received dose of prn morphine at 2320. pt stated this dose relieved his pain. pt was also reporting nausea at that time. pt reports relief for that as well. call light in reach. all needs met at this time.
--- NOTE | 2023-11-05 06:06 | NUR ---
pt reporting increased abd pain. pt rates it 05/09. pt reporting the pain now moving to the lower abd. pt abd feels soft but still distended. prn morphine administered per orders. call light in reach. all needs met at this time.
[2023-11-05 07:03] LABS: HEMATOCRIT 45.4 % (42.0-52.0); HEMOGLOBIN 15.7 g/dl (13.5-18.0); MEAN CELL VOLUME 80 fl (80.0-100.0); MEAN CORPUSCULAR HEMOGLOBIN 28 pg (27-31); MEAN CORPUSCULAR HGB CONC 35 g/dl (33.0-37.0); PLATELET COUNT 111 K/mm3 (130-400); REDCELL DISTRIBUTION WIDTH-CV 17.4 % (11.5-14.5)
[2023-11-05 07:20] LABS: CALCIUM 7.4 mg/dL (8.4-10.2); CREATININE, serum 1.22 mg/dL (0.72-1.25); MAGNESIUM 1.1 mg/dL (1.6-2.6); POTASSIUM 3.4 mmol/L (3.5-4.5)
--- NOTE | 2023-11-05 08:09 | NUR ---
Notified [facility] of critical white count
[2023-11-05 08:25] LABS: BAND 5 % (0-10); METAMYELOCYTE 1 % (0-0); NEUTROPHILS 92 % (42.0-75.2)
[2023-11-05 08:26] LABS: ANISOCYTOSIS 1+; MICROCYTOSIS 1+; PLATELET ESTIMATE DECREASED (NORMAL)
[2023-11-05] MEDS ORDERED: Folic Acid 1 MG TAB PO SCH (09:00)
[2023-11-05] MEDS ORDERED: Clopidogrel 75 MG TAB PO SCH (09:00)
--- NOTE | 2023-11-05 11:05 | NUR ---
Pt does use call light when he needs to go to the restroom. Pt uses walker and does have a steady gait. Bed alarm put on just incase pt tries to get up as I feel that having a standby assist is beneficial.
[2023-11-05] MEDS ORDERED: PRIL40 PO (11:11)
[2023-11-05] MEDS ORDERED: NORVASC 5MG5 MG/TAB PO (11:13)
[2023-11-05] MEDS ORDERED: TOPROL XL 25MG25 MG PO (11:19)
--- NOTE | 2023-11-05 12:06 | NUR ---
hall worker and Student, Jackelyn, met with patient to discuss discharge planning. Patient lives alone in [place]. Best point of contact is Angelika his sister, P# [phone]. PCP is Erin, pharmacy is [facility]. No issues affording medications at this time. Insurance is Medicare [employer]. Patient reports he does not have a DPOA-HC and does not wish to complete one at this time. Patient reports he has a cane and walker at home. Patient reports to be independent with ADLS and is able to transport himself to and from appointments. Patient would like to return home at time of discharge. SW also provided information on drug and alcohol treatment options as well as AA meetings available in his area as patient expressed being sober but recently started drinking again. Discharge plan: Home
[2023-11-05] MEDS ORDERED: Magnesium Sulfate 8% 50 ML IV ONE (12:30)
--- NOTE | 2023-11-05 14:29 | NUR ---
Notified Dr Vaughan of pt BP
[2023-11-05] MEDS ORDERED: Meropenem 500 MG in Water For Injection,Sterile 10 ML IV SCH (14:30)
[2023-11-05] MEDS ORDERED: NS 1,000 ML IV ONE (14:45)
[2023-11-05] MEDS ORDERED: Vecuronium 10 MG VIAL IV SCH (16:09)
[2023-11-05] MEDS ORDERED: fentaNYL 100 ML IV SCH (16:30)
[2023-11-05] MEDS ORDERED: Naloxone 0.4 MG/ML VIAL IV PRN (16:30)
[2023-11-05] MEDS ORDERED: Calcium Gluconate 1,000 MG (4.65 mEq)/10 ML VIAL IV SCH (16:33)
[2023-11-05] MEDS ORDERED: Sodium Bicarbonate 8.4% 50 MEQ/50 ML SYRINGE IV SCH (16:34)
[2023-11-05 16:41] LABS: BASO # 0.1 K/mm3 (0.0-0.2); BASO % 0.2 % (0.0-2.0); EOS # 0.1 K/mm3 (0.0-0.7); EOS % 0.2 % (0.0-4.0); GRAN # 33.8 K/mm3 (1.4-6.5); GRAN % 76.9 % (42.2-75.2); HEMOGLOBIN 14.9 g/dl (13.5-18.0); LYMPH # 3.8 K/mm3 (1.2-3.4); LYMPH % 8.5 % (20.0-51.0); MEAN CORPUSCULAR HEMOGLOBIN 28 pg (27-31); MEAN CORPUSCULAR HGB CONC 31 g/dl (33.0-37.0); MEAN PLATELET VOLUME 12.3 fl (7.4-10.4); MONO # 4.3 K/mm3 (0.1-0.6); MONO % 9.8 % (1.7-9.3); PLATELET COUNT 97 K/mm3 (130-400); RED BLOOD COUNT 5.35 M/mm3 (4.20-5.60); REDCELL DISTRIBUTION WIDTH-CV 18.2 % (11.5-14.5)
[2023-11-05] MEDS ORDERED: EPINEPHrine 1 MG/10 ML (1:10,000) SYRINGE IV ONE (16:50)
[2023-11-05] MEDS ORDERED: Vasopressin 20 UNITS in NS 100 ML IV ONE (16:50)
[2023-11-05 16:58] LABS: ALBUMIN 2.2 gm/dL (3.5-5.0); BILIRUBIN,TOTAL 5.5 mg/dL (0.2-1.2); CALCIUM 6.8 mg/dL (8.4-10.2); CREATININE, serum 2.34 mg/dL (0.72-1.25); MAGNESIUM 3.1 mg/dL (1.6-2.6); POTASSIUM 4.3 mmol/L (3.5-4.5); TOTAL PROTEIN 6.1 gm/dL (6.2-8.1)
--- NOTE | 2023-11-05 17:03 | NUR ---
spray worker was notified of code blue on this patient. SW contacted next of kin, Angelika, to come to the hospital as soon as possible. JE met with Angelika and escorted her to the ICU where patient was moved. JE met with Shanika Carney (housetrailer servicer) and Dr. Vaughan to discuss patient's current medical status. Angelika is contacting her sister to discuss next steps together if patient were to code again and will notify the doctor when they decide.
--- NOTE | 2023-11-05 17:03 | NUR ---
Approximately 1556 pt rang call light to use the restroom. PCT went in to assist him. PCT then called this nurse asking for help with transportation. Upon entering room, pt stated that he needed to use the restroom and then would make uncontrolled jerky movements. Asked pt if he felt okay. He stated yes, just a little dizzy. Pts HOB had been flat due to low blood pressure. Bolus had recently finished infusing. Called Dr Vaughan at 1559, seconds in to conversation pt became unresponsive, code called at 1600. See code record
[2023-11-05 17:05] LABS: TROPONIN-I 0.013 ng/mL (0.00-0.033)
--- NOTE | 2023-11-05 17:15 | NUR ---
Patient palliatively extubated. Patient became bradycardic then asystole noted on the monitor. confirmed via auscultation with two RN's.
--- NOTE | 2023-11-05 17:25 | NUR ---
NEN notified of , referral number [id number]. We may not release body to the home. Family has chosen [facility] ([phone])
[2023-11-05 17:40] LABS: MEAN CELL VOLUME 90 fl (80.0-100.0)
--- NOTE | 2023-11-05 17:52 | NUR ---
[facility] called, patient is not a candidate for tissue, [facility] will call, saline placed in patient eyes.
--- NOTE | 2023-11-05 18:25 | NUR ---
CODE CALLED AT 1600 CPR STARTED. BAGGED PT UNTIL DR LENZ INTUBATED WITH 8.0 ETT 24@ LIP. GOOD COLOR CHANGE ON ETCO2 AND BILATERAL BREATH SOUNDS. ETT SECURED. OG WAS PLACED WELL. PT TRANSPORTED TO ICU. CONTINUED TO BAG PT AND DID CHEST COMPRESSIONS UNTIL PULSE CAME BACK. SUCTIONED MODERATED AMT OF YELLOW/GREEN SECRETIONS FROM ETT TUBE AND ORAL AIRWAY. DESCISION MADE BY FAMILY TO MAKE PT A DNR. PT WAS THEN EXTUBATED.
[2023-11-05] MEDS ORDERED: Etomidate 20 MG/10 ML VIAL IV ONE (18:27)
--- NOTE | 2023-11-05 19:35 | NUR ---
Puneet from [facility] called to clarify IV fluids given and home. Will Call back when released.
--- NOTE | 2023-11-05 20:15 | NUR ---
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 ETA 1137
--- NOTE | 2023-11-06 03:18 | NUR ---
Contacted [facility] to sampler pickup patient.
== END 2023-11-06 10:00 | disposition expired | DRG 439 ==
LOC: COL.ER 13:09 → SURG 17:04 → ICU 11-05 16:29
PROVIDERS: Internal Medicine; Physician Assistant; ADMIT Internal Medicine
PROC: 5A12012 Performance of Cardiac Output, Single, Manual (ICD-10-PCS; principal; 2023-11-06)
PROC: 0BH17EZ Insertion of Endotracheal Airway into Trachea, Via Natural or Artificial Opening (ICD-10-PCS; 2023-11-06)
DX: K85.20 Alcohol induced acute pancreatitis without necrosis or infection (principal); I85.10 Secondary esophageal varices without bleeding; R57.9 Shock, unspecified; K70.30 Alcoholic cirrhosis of liver without ascites; K21.9 Gastro-esophageal reflux disease without esophagitis; Z66 Do not resuscitate; I10 Essential (primary) hypertension; E11.40 Type 2 diabetes mellitus with diabetic neuropathy, unspecified; F10.10 Alcohol abuse, uncomplicated; E78.5 Hyperlipidemia, unspecified; I46.9 Cardiac arrest, cause unspecified; I25.10 Atherosclerotic heart disease of native coronary artery without angina pectoris; Z95.5 Presence of coronary angioplasty implant and graft; Z90.49 Acquired absence of other specified parts of digestive tract; Z89.421 Acquired absence of other right toe(s); Z87.891 Personal history of nicotine dependence; Z23 Encounter for immunization; Z51.5 Encounter for palliative care; Z79.85 Long-term (current) use of injectable non-insulin antidiabetic drugs; E86.0 Dehydration
CPT/HCPCS: A4217; J0171; J0612; J1650; J2185; J2270; J2405; J2598; J3475; J7030; J7040; J7060; Q9967